=== PATIENT | female | born 1955 | race Caucasian/White ===

== ENCOUNTER 2023-12-17 08:42 | Outpatient (REF) | payer BC, SELFPAY ==
[2023-12-17] VITALS (9 sets, daily range): BP systolic 74–156; BP diastolic 65–79
[2023-12-17 09:05] LABS: Hematocrit 31.5 % (37.0-47.0); Hemoglobin 10.3 g/dL (12.0-16.0); Mean Corp Hgb Conc. 32.7 g/dL (33.0-37.0); Mean Corpuscular Hgb 28.9 pg (27.0-31.0); Mean Corpuscular Volume 88.2 fL (81.0-99.0); Mean Platelet Volume 8.8 fL (7.4-10.4); Platelet Count 499 10^3/uL (130-400); Red Blood Cell Count 3.57 10^6/uL (4.20-5.40); Red Cell Dist. Width 13.7 % (11.5-14.5); White Blood Cell Count 9.8 10^3/uL (4.8-10.8)
[2023-12-17 09:14] LABS: INR 1.03; PT 13.5 Sec (11.4-14.6)
[2023-12-17] MEDS: CATAPRES 0.100000000000000006 MG PO (09:42)
[2023-12-17] MEDS: NSS (PRESERVATIVE FREE) 0.5 ML IV (09:42)
[2023-12-17] MEDS: ATIVAN 1 MG IV (09:42)
[2023-12-17 09:45] LABS: Blood Urea Nitrogen 41 mg/dl (7-17); Calcium 9.2 mg/dl (8.4-10.2); Carbon Dioxide 17 mmol/L (22-30); Chloride 111 mmol/L (98-107); Glucose 218 mg/dl (70-99); Potassium 5.1 mmol/L (3.5-5.1); Sodium 135 mmol/L (135-145); eGFR 17.84
[2023-12-17 12:07] LABS: Glucose - Point of Care 168 mg/dl (70-99)
[2023-12-17 14:00] LABS: Glucose - Point of Care 140 mg/dl (70-99)
[2023-12-17 16:08] LABS: Hematocrit 31.2 % (37.0-47.0); Hemoglobin 10.5 g/dL (12.0-16.0)
== END 2023-12-17 17:10 | disposition home or self-care (01) ==
LOC: RADI 08:42
PROVIDERS: Radiology Vascular & Interventional Radiology; ATTENDING PHYSICIAN Specialist; REFERRING PHYSICIAN Physician Assistant
DX: I12.9 Hypertensive chronic kidney disease with stage 1 through stage 4 chronic kidney disease, or unspecified chronic kidney disease (principal); E11.22 Type 2 diabetes mellitus with diabetic chronic kidney disease; N18.4 Chronic kidney disease, stage 4 (severe); Z01.812 Encounter for preprocedural laboratory examination; Z01.818 Encounter for other preprocedural examination
CPT/HCPCS: 36415; 50200; 76942; 80048; 82962; 85014; 85018; 85027; 85610; 99152; 99153

== ENCOUNTER 2024-10-12 09:12 | Outpatient (RCR) | payer MEDICARE, SELFPAY ==
[2024-10-12] MEDS: INJECTAFER 265 MG IV (09:39)
[2024-10-12 09:54] VITALS: BP 128/73
[2024-10-12 10:35] VITALS: BP 161/63
== END 2024-10-13 09:20 | disposition home or self-care (01) ==
LOC: OID 09:12
PROVIDERS: ATTENDING PHYSICIAN Specialist
DX: N18.4 Chronic kidney disease, stage 4 (severe) (principal); D63.1 Anemia in chronic kidney disease
CPT/HCPCS: 96365; J1439